=== PATIENT | male | born 1960 | race Caucasian/White ===

== ENCOUNTER 2016-12-21 16:51 | Emergency (ER) | payer OTHER ==
[~2016-12-21] VITALS: Ht 180.3 cm; Wt 120.2 kg
--- NOTE | 2016-12-21 17:05 | NUR ---
PT AMBULATORY TO ER BED 07. CAME FROM URGENT CARE AND WAS ADVISED TO GO TO ER FOR POSSIBLE STROKE. NO NEURO DEFICIT NOTED UPON ARRIVAL. PT GOWNED AND PLACED ON MONITOR. STABLE VITALS. AWAITING MD XAVIER.
--- NOTE | 2016-12-21 17:10 | NUR ---
DR TEMPLE AT BEDSIDE FOR EVAL.
--- NOTE | 2016-12-21 17:12 | NUR ---
IV LINE STARTED BLOOD DRAWN AND SENT TO LAB.
[2016-12-21 17:21] LABS: BASOPHILS # (AUTO) 0.1 /CMM (0.0-0.2); BASOPHILS % (AUTO) 0.6 % (0.0-2.0); EOSINOPHILS # (AUTO) 0.2 /CMM (0.0-0.7); EOSINOPHILS % (AUTO) 1.5 % (0.0-6.0); HEMATOCRIT 43 % (39-51); HEMOGLOBIN 14.4 g/dL (13.5-17.5); LYMPHOCYTES # (AUTO) 2.6 /CMM (0.8-4.8); LYMPHOCYTES % (AUTO) 24.1 % (20.0-44.0); MEAN CORPUSCULAR HEMOGLOBIN 28 PG (26.0-33.0); MEAN CORPUSCULAR HGB CONC 34 g/dl (31.0-36.0); MEAN CORPUSCULAR VOLUME 85 fL (80-96); MONOCYTES # (AUTO) 0.7 /CMM (0.1-1.30); MONOCYTES % (AUTO) 6.5 % (2.0-12.0); NEUTROPHILS # (AUTO) 7.2 /CMM (1.8-8.9); NEUTROPHILS % (AUTO) 67.3 % (43.0-81.0); PLATELET COUNT (AUTO) 202 /CMM (150-450); RDW COEFFICIENT OF VARIATION 12.7 (11.5-15.0); RED BLOOD CELL COUNT(AUTO) 5.07 MIL/uL (4.5-6.0); WHITE BLOOD COUNT (AUTO) 10.8 K/uL (4.3-11.0)
[2016-12-21] MEDS ORDERED: IV SET PRIMARY 1 EA INFUS.SET MC ONE (17:26)
[2016-12-21] MEDS ORDERED: IV NS 0.9% 1,000 ML ONE (17:26)
[2016-12-21] MEDS ORDERED: ONDANSETRON HCL/PF 4 MG/2 ML VIAL ONE (17:26)
[2016-12-21] MEDS ORDERED: IV NS 0.9% 1,000 ML BAG IV ONE (17:30)
[2016-12-21] MEDS ORDERED: ONDANSETRON HCL/PF 4 MG/2 ML VIAL IVP ONE (17:30)
[2016-12-21 17:31] LABS: INR 0.97 (0.87-1.13); PROTHROMBIN TIME 10.1 SECS (9.5-12.7)
[2016-12-21 17:32] LABS: ALBUMIN 4.1 g/dL (3.4-5.0); BILIRUBIN,DIRECT 0.1 mg/dL (0.0-0.2); BILIRUBIN,TOTAL 0.4 mg/dL (0.2-1.0); CALCIUM, SERUM 8.7 mg/dL (8.5-10.1); CREATININE 1.4 mg/dL (0.6-1.3)
[2016-12-21 17:34] LABS: POTASSIUM 2.7 mmol/L (3.5-5.1)
[2016-12-21] MEDS ORDERED: DICL75TA5 PO (17:42)
[2016-12-21] MEDS ORDERED: OMEP20TA20 PO (17:42)
[2016-12-21] MEDS ORDERED: HYDR-3976 PO (17:42)
--- NOTE | 2016-12-21 17:44 | NUR ---
RADIOLOGY AT BEDSIDE FOR CHEST XRAY.
[2016-12-21] MEDS ORDERED: POTASSIUM CHLORIDE 20 MEQ TAB.PRT.SR PO ONE ×2 (18:00→18:13)
[2016-12-21] MEDS ORDERED: IV SET PRIMARY PUMP SET 1 EA INFUS.SET MC ONE (18:17)
[2016-12-21] MEDS ORDERED: POTASSIUM CL. PREMIX PERIPHER. 200 ML ONE (18:17)
[2016-12-21] MEDS: POTASSIUM CL. PREMIX PERIPHER. 50 ML IV SCH ×4 (18:20→21:22)
--- NOTE | 2016-12-21 19:15 | NUR ---
Received patient in bed aaox4, no s/s of acute distress, breathing even and unlabored. Denies any pain or discomfort at this time. KCL ivf running well without adverse reaction noted. Will continue to monitor.
[2016-12-21 22:10] VITALS: BP 120/78
== END 2016-12-21 22:30 | disposition home or self-care (01) ==
LOC: ER 16:55
DX: R55 Syncope and collapse (principal); E87.6 Hypokalemia; R42 Dizziness and giddiness; E86.0 Dehydration; G89.29 Other chronic pain; M54.2 Cervicalgia; I34.1 Nonrheumatic mitral (valve) prolapse; M19.90 Unspecified osteoarthritis, unspecified site; K21.9 Gastro-esophageal reflux disease without esophagitis
CPT/HCPCS: 36415; 70450-TC; 71010-TC; 80048-TC; 80076-TC; 82962-TC; 85025-TC; 85730-TC; A4606; J2405; J3480; J7030; Z7610

== ENCOUNTER 2017-04-09 21:22 | Emergency (ER) | payer OTHER ==
[~2017-04-09] VITALS: Ht 180.3 cm; Wt 124.7 kg
[~2017-04-09 21:22] MED LIST: DICL75TA5 PO; HYDR-3976 PO; OMEP20TA20 PO
--- NOTE | 2017-04-09 21:40 | NUR ---
PT A/OX4 BREATHING EFFORTLESSLY ON ROOM AIR, PT C/O NOT BEING CLAUDIA TO URINATE FOR ONE DAY, PT STATES THAT HE HAS THE URGE TO PEE BUT IS NOT ABLE TO URINATE, PT IN GOWN ON MONITOR, MADE AWARE WILL CONTINUE TO MONITOR.
[2017-04-09] MEDS ORDERED: LIDOCAINE 2% JEL UROJET 10 ML MM ONE ×2 (21:54→22:00)
--- NOTE | 2017-04-09 22:50 | NUR ---
URINE COLLECTED FROM CERVANTES CATHETER AND SENT TO LAB
[2017-04-09 23:17] LABS: APPEARANCE,URINE CLEAR (CLEAR); BILIRUBIN,URINE NEGATIVE (NEGATIVE); BLOOD, URINE TRACE-INTA Ery/uL (NEGATIVE); COLOR,URINE YELLOW (YELLOW); KETONES,URINE TRACE (NEGATIVE); LEUKOCYTE ESTERASE ,URINE NEGATIVE (NEGATIVE); NITRITE, URINE NEGATIVE (NEGATIVE); PROTEIN,URINE 1+ mg/dl (NEGATIVE); UGLUCOSE NEGATIVE (NEGATIVE); UROBILINOGEN,URINE 0.2 EU/dL (0.2)
[2017-04-09 23:37] LABS: BACTERIA,URINE None seen /HPF (None Seen); SQUAMOUS EPITHELIAL CELL,UR Few /HPF (None Seen); WBC,URINE 0-2 /HPF (0-3)
[2017-04-09 23:38] LABS: CALCIUM OXALATE CRYSTALS,UR Many /HPF (None Seen); MUCUS,URINE Few /LPF (None Seen)
[2017-04-10] MEDS ORDERED: IV NS 0.9% 1,000 ML BAG IV ONE (00:30)
[2017-04-10 00:52] LABS: BASOPHILS % (AUTO) 0.3 % (0.0-2.0); EOSINOPHILS # (AUTO) 0.1 /CMM (0.0-0.7); EOSINOPHILS % (AUTO) 1.1 % (0.0-6.0); HEMATOCRIT 47 % (39-51); HEMOGLOBIN 16.1 g/dL (13.5-17.5); LYMPHOCYTES # (AUTO) 1.4 /CMM (0.8-4.8); LYMPHOCYTES % (AUTO) 16.5 % (20.0-44.0); MEAN CORPUSCULAR HEMOGLOBIN 30 PG (26.0-33.0); MEAN CORPUSCULAR HGB CONC 34 g/dl (31.0-36.0); MEAN CORPUSCULAR VOLUME 86 fL (80-96); MONOCYTES # (AUTO) 0.4 /CMM (0.1-1.30); MONOCYTES % (AUTO) 5.1 % (2.0-12.0); NEUTROPHILS # (AUTO) 6.7 /CMM (1.8-8.9); PLATELET COUNT (AUTO) 171 /CMM (150-450); RDW COEFFICIENT OF VARIATION 13.3 (11.5-15.0); RED BLOOD CELL COUNT(AUTO) 5.42 MIL/uL (4.5-6.0); WHITE BLOOD COUNT (AUTO) 8.7 K/uL (4.3-11.0)
[2017-04-10 01:07] LABS: CREATININE 1.5 mg/dL (0.6-1.3); POTASSIUM 3.8 mmol/L (3.5-5.1)
--- NOTE | 2017-04-10 02:07 | NUR ---
switched pt ramsey cath bag to a leg bag as ordered
[2017-04-10 02:08] VITALS: BP 134/85
--- NOTE | 2017-04-10 02:08 | NUR ---
Patient discharged to home in stable condition. Written and verbal after care instructions given. Patient verbalizes understanding of instruction.IV removed. Catheter intact and site benign. Pressure and 4x4 applied to site. No bleeding noted. pt ambulatory with a steady gait VITAL SIGNS WITHIN NORMAL LIMITS.
== END 2017-04-10 02:11 | disposition home or self-care (01) ==
LOC: ER 21:25
DX: R33.9 Retention of urine, unspecified (principal); I34.1 Nonrheumatic mitral (valve) prolapse; K21.9 Gastro-esophageal reflux disease without esophagitis; K40.90 Unilateral inguinal hernia, without obstruction or gangrene, not specified as recurrent; K76.0 Fatty (change of) liver, not elsewhere classified; M51.26 Other intervertebral disc displacement, lumbar region
CPT/HCPCS: 36415; 72128-TC; 80048-TC; 81000-TC; 85025-TC; A4606; J3490; J7030; Z7610

== ENCOUNTER 2017-04-11 10:28 | Emergency (ER) | payer OTHER ==
[~2017-04-11] VITALS: Ht 180.3 cm; Wt 122.5 kg
--- NOTE | 2017-04-11 10:42 | NUR ---
PATIENT ARRIVES TO ER C/O LEAKING CERVANTES CATHETER. PATIENT SET TO SEE UROLOGIST NEXT WEEK. PATIENT IS A/OX 4. BREATHING EVEN AND UNLABORED ON ROOM AIR. NO SOB. NO DISTRESS. VITALS STABLE. AWAITING MD ORDERS.
[2017-04-11 10:59] VITALS: BP 135/86
--- NOTE | 2017-04-11 11:00 | NUR ---
Patient discharged to home in stable condition. Written and verbal after care instructions given. Patient verbalizes understanding of instruction.
== END 2017-04-11 10:59 | disposition home or self-care (01) ==
LOC: ER 10:31
DX: T83.038A Leakage of other urinary catheter, initial encounter (principal); Y92.89 Other specified places as the place of occurrence of the external cause; I34.1 Nonrheumatic mitral (valve) prolapse; K21.9 Gastro-esophageal reflux disease without esophagitis
CPT/HCPCS: A4606; Z7610

== ENCOUNTER 2018-03-17 17:47 | Emergency (ER) | payer OTHER ==
[~2018-03-17] VITALS: Ht 180.3 cm; Wt 117.9 kg
[2018-03-17 18:20] LABS: BASOPHILS # (AUTO) 0.2 /CMM (0.0-0.2); BASOPHILS % (AUTO) 2.4 % (0.0-2.0); EOSINOPHILS % (AUTO) 3.3 % (0.0-6.0); HEMATOCRIT 46 % (39-51); HEMOGLOBIN 15.7 g/dL (13.5-17.5); LYMPHOCYTES # (AUTO) 1.7 /CMM (0.8-4.8); LYMPHOCYTES % (AUTO) 24.8 % (20.0-44.0); MEAN CORPUSCULAR HGB CONC 34 g/dl (31.0-36.0); MEAN CORPUSCULAR VOLUME 86 fL (80-96); MONOCYTES # (AUTO) 0.5 /CMM (0.1-1.30); MONOCYTES % (AUTO) 6.8 % (2.0-12.0); NEUTROPHILS # (AUTO) 4.4 /CMM (1.8-8.9); NEUTROPHILS % (AUTO) 62.7 % (43.0-81.0); PLATELET COUNT (AUTO) 186 /CMM (150-450); RDW COEFFICIENT OF VARIATION 12.4 (11.5-15.0); RED BLOOD CELL COUNT(AUTO) 5.36 MIL/uL (4.5-6.0)
--- NOTE | 2018-03-17 18:21 | NUR ---
A/OX4, ABDOMINAL PAIN, BURNING SENSATION UPON URINATION FOR "FEW DAYS" DENIES HEMATURIA. NAD VSS RR EVEN AND UNLABORED. SEEN AND EVALUATED BY ER
[2018-03-17 18:23] LABS: APPEARANCE,URINE Clear (CLEAR); BILIRUBIN,URINE Negative (NEGATIVE); BLOOD, URINE Negative Ery/uL (NEGATIVE); COLOR,URINE Yellow (YELLOW); KETONES,URINE Negative (NEGATIVE); LEUKOCYTE ESTERASE ,URINE Negative (NEGATIVE); NITRITE, URINE Negative (NEGATIVE); PROTEIN,URINE Negative (NEGATIVE); UGLUCOSE Negative (NEGATIVE); UROBILINOGEN,URINE 0.2 EU/dL (0.2)
[2018-03-17 18:31] LABS: CALCIUM, SERUM 9.6 mg/dL (8.5-10.1); CREATININE 1.4 mg/dL (0.6-1.3); POTASSIUM 3.8 mmol/L (3.5-5.1)
[2018-03-17 18:36] LABS: ALBUMIN 3.9 g/dL (3.4-5.0); BILIRUBIN,DIRECT 0.1 mg/dL (0.0-0.2); BILIRUBIN,TOTAL 0.4 mg/dL (0.2-1.0); TOTAL PROTEIN, SERUM 7.1 g/dL (6.4-8.2)
[2018-03-17] MEDS ORDERED: MAGNESIUM CITRATE 296 ML BOTTLE ONE (19:08)
--- NOTE | 2018-03-17 19:10 | NUR ---
Patient discharged to home in stable condition. Written and verbal after care instructions given. Patient verbalizes understanding of instruction.
[2018-03-17 19:11] VITALS: BP 140/89
[2018-03-17] MEDS ORDERED: MAGNESIUM CITRATE 296 ML BOTTLE PO ONE (19:30)
== END 2018-03-17 19:12 | disposition home or self-care (01) ==
LOC: ER 17:50
DX: R10.9 Unspecified abdominal pain (principal); K21.9 Gastro-esophageal reflux disease without esophagitis; M19.90 Unspecified osteoarthritis, unspecified site; M50.20 Other cervical disc displacement, unspecified cervical region; Z95.2 Presence of prosthetic heart valve; Z98.1 Arthrodesis status
CPT/HCPCS: 36415; 74021; 80048; 80076; 81001; 83690; 85025; 99285; A4606; Z7610; 81000-TC

== ENCOUNTER 2018-07-02 18:00 | Emergency (ER) | payer OTHER ==
[~2018-07-02] VITALS: Ht 180.3 cm; Wt 117.9 kg
[2018-07-02 18:00] VITALS: BP 139/78
== END 2018-07-02 18:38 | disposition home or self-care (01) ==
LOC: ER 18:02
DX: K13.79 Other lesions of oral mucosa (principal); G89.29 Other chronic pain; M50.20 Other cervical disc displacement, unspecified cervical region; M46.92 Unspecified inflammatory spondylopathy, cervical region; K21.9 Gastro-esophageal reflux disease without esophagitis; I34.0 Nonrheumatic mitral (valve) insufficiency
CPT/HCPCS: A4606; Z7610

== ENCOUNTER 2019-02-09 12:31 | Emergency (ER) ==
[~2019-02-09] VITALS: Ht 180.3 cm; Wt 117.9 kg
--- NOTE | 2019-02-09 12:43 | NUR ---
CAME IN FOR ABD PAIN, NON RADIATING x 2 1/2 DAYS, +NAUSEA, -DIARRHEA, PS 9/10, TO ER BED 11,AOX 4, RESPIRATIONS EVEN AND UNLABORED, HOOKED TO MONITOR, CHANGED TO GOWN, PROVIDED WITH WARM BLANKET, AWAITING MD XAVIER.
[2019-02-09 12:58] LABS: BASOPHILS # (AUTO) 0.1 /CMM (0.0-0.2); BASOPHILS % (AUTO) 0.6 % (0.0-2.0); EOSINOPHILS % (AUTO) 2.3 % (0.0-6.0); HEMATOCRIT 43 % (39-51); HEMOGLOBIN 15.1 g/dL (13.5-17.5); LYMPHOCYTES # (AUTO) 1.7 /CMM (0.8-4.8); LYMPHOCYTES % (AUTO) 15.5 % (20.0-44.0); MEAN CORPUSCULAR HGB CONC 35 g/dl (31.0-36.0); MEAN CORPUSCULAR VOLUME 85 fL (80-96); MONOCYTES # (AUTO) 0.7 /CMM (0.1-1.30); MONOCYTES % (AUTO) 6.9 % (2.0-12.0); NEUTROPHILS # (AUTO) 8.1 /CMM (1.8-8.9); NEUTROPHILS % (AUTO) 74.7 % (43.0-81.0); PLATELET COUNT (AUTO) 181 /CMM (150-450); RED BLOOD CELL COUNT(AUTO) 5.08 MIL/uL (4.5-6.0); WHITE BLOOD COUNT (AUTO) 10.8 K/uL (4.3-11.0)
--- NOTE | 2019-02-09 13:01 | NUR ---
WHEELED OUT VIA WHEELCHAIR FOR CT SCAN.
[2019-02-09 13:04] LABS: CALCIUM, SERUM 8.8 mg/dL (8.5-10.1); CREATININE 1.4 mg/dL (0.6-1.3); POTASSIUM 4.5 mmol/L (3.5-5.1)
[2019-02-09 13:05] LABS: BILIRUBIN,URINE Negative (NEGATIVE); BLOOD, URINE Negative Ery/uL (NEGATIVE); KETONES,URINE Negative (NEGATIVE); LEUKOCYTE ESTERASE ,URINE Negative (NEGATIVE); NITRITE, URINE Negative (NEGATIVE); PROTEIN,URINE 30 mg/dl (NEGATIVE); UGLUCOSE Negative (NEGATIVE); UROBILINOGEN,URINE 0.2 EU/dL (0.2)
--- NOTE | 2019-02-09 13:05 | NUR ---
URINE SPECIMEN COLLECTED AND SENT TO LAB.
[2019-02-09 13:06] LABS: APPEARANCE,URINE Hazy (CLEAR); COLOR,URINE Dark Yellow (YELLOW)
[2019-02-09 13:11] LABS: ALBUMIN 3.8 g/dL (3.4-5.0); BILIRUBIN,DIRECT 0.2 mg/dL (0.0-0.2); BILIRUBIN,TOTAL 0.8 mg/dL (0.2-1.0); TOTAL PROTEIN, SERUM 7.4 g/dL (6.4-8.2)
[2019-02-09 13:14] LABS: BACTERIA,URINE None seen /HPF (None Seen); RBC,URINE 0-2 /HPF (0-2); SQUAMOUS EPITHELIAL CELL,UR Few /HPF (None Seen)
[2019-02-09 13:15] LABS: MUCUS,URINE Few /LPF (None Seen)
[2019-02-09] MEDS ORDERED: ACETAMINOPHEN ES 500 MG TABLET ONE (13:38)
--- NOTE | 2019-02-09 13:40 | NUR ---
PT REQUESTED FOR TYLENOL BEFORE BEING DISCHARGED. MADE MD AWARE AND VERBALLY ORDERED TYLENOL 1000MG PO. CARRIED OUT.
--- NOTE | 2019-02-09 13:50 | NUR ---
IV removed. Catheter intact and site benign. Pressure and 4x4 applied to site. No bleeding noted.Patient discharged to home in stable condition. Written and verbal after care instructions given. Patient verbalizes understanding of instruction.
[2019-02-09 13:52] VITALS: BP 122/76
[2019-02-09] MEDS ORDERED: ACETAMINOPHEN ES 500 MG TABLET PO ONE (14:00)
[2019-03-07] MEDS ORDERED: CIPR-262 PO (08:09)
[2019-03-07] MEDS ORDERED: METR500T PO (08:09)
== END 2019-02-09 13:52 | disposition home or self-care (01) ==
LOC: ER 12:31
DX: K57.32 Diverticulitis of large intestine without perforation or abscess without bleeding (principal); K21.9 Gastro-esophageal reflux disease without esophagitis; Z98.890 Other specified postprocedural states
CPT/HCPCS: 36415; 80048-TC; 80076-TC; 81000-TC; 83690-TC; 85025-TC

== ENCOUNTER 2019-02-25 07:25 | Emergency (ER) | payer OTHER ==
[~2019-02-25] VITALS: Ht 180.3 cm; Wt 117.9 kg
[2019-02-25] MEDS ORDERED: KETOROLAC TROMETHAMINE INJ 30 MG/ML VIAL ONE (08:08)
[2019-02-25 08:13] LABS: BASOPHILS # (AUTO) 0.1 /CMM (0.0-0.2); BASOPHILS % (AUTO) 0.6 % (0.0-2.0); EOSINOPHILS % (AUTO) 4.8 % (0.0-6.0); HEMATOCRIT 46 % (39-51); HEMOGLOBIN 15.8 g/dL (13.5-17.5); LYMPHOCYTES # (AUTO) 1.3 /CMM (0.8-4.8); LYMPHOCYTES % (AUTO) 15.5 % (20.0-44.0); MEAN CORPUSCULAR HGB CONC 34 g/dl (31.0-36.0); MEAN CORPUSCULAR VOLUME 86 fL (80-96); MONOCYTES # (AUTO) 0.7 /CMM (0.1-1.30); MONOCYTES % (AUTO) 8.9 % (2.0-12.0); NEUTROPHILS # (AUTO) 5.9 /CMM (1.8-8.9); NEUTROPHILS % (AUTO) 70.2 % (43.0-81.0); PLATELET COUNT (AUTO) 178 /CMM (150-450); RED BLOOD CELL COUNT(AUTO) 5.34 MIL/uL (4.5-6.0); WHITE BLOOD COUNT (AUTO) 8.4 K/uL (4.3-11.0)
[2019-02-25 08:19] LABS: CREATININE 1.1 mg/dL (0.6-1.3); POTASSIUM 4.4 mmol/L (3.5-5.1)
[2019-02-25 08:25] LABS: ALBUMIN 3.7 g/dL (3.4-5.0); BILIRUBIN,TOTAL 0.7 mg/dL (0.2-1.0); TOTAL PROTEIN, SERUM 7.7 g/dL (6.4-8.2)
[2019-02-25] MEDS ORDERED: IV NS 0.9% 1,000 ML BAG IV ONE (08:30)
[2019-02-25] MEDS ORDERED: KETOROLAC TROMETHAMINE INJ 30 MG/ML VIAL IV ONE (08:30)
[2019-02-25] MEDS ORDERED: PIPERACILLIN /TAZOBACTAM 3.375 G in IV D5W 50 ML IV ONE (09:30)
[2019-02-25 09:58] VITALS: BP 118/70
[2019-03-07] MEDS ORDERED: CIPR-262 PO (08:09)
[2019-03-07] MEDS ORDERED: METR500T PO (08:09)
== END 2019-02-25 10:01 | disposition home or self-care (01) ==
LOC: ER 07:29
DX: K57.32 Diverticulitis of large intestine without perforation or abscess without bleeding (principal); G89.29 Other chronic pain; M19.90 Unspecified osteoarthritis, unspecified site; K21.9 Gastro-esophageal reflux disease without esophagitis; Z98.890 Other specified postprocedural states; Z79.899 Other long term (current) drug therapy
CPT/HCPCS: 36415; 74176; 80048; 80076; 83690; 85025; 96365; 96375; 99284; J1885; J2543; J7030 ×2; J7060

== ENCOUNTER 2019-03-05 23:14 | Inpatient (IN) | payer OTHER ==
[~2019-03-05] VITALS: Ht 180.3 cm; Wt 117.9 kg
--- NOTE | 2019-03-05 23:40 | NUR ---
PT PRESENTED TO THE ER WITH A C/O ABD PAIN AND BLOODY STOOL X1. PT STATED THAT HE WAS DX WITH DIVERTICULITIS LAST WEEK AND IS ALMOST FINISHED WITH HIS FLAGYL RX. PT STATED THAT HE HAD SEVERE ABD PAIN AND WENT TO THE BATHROOM WHERE HE NOTICED HE HAD BLOODY DIARRHEA. PT STATED THAT HE HAD HEMORRHOIDS LAST WEEK. PT AMBULATED TO ER #2 WITH A STEADY GAIT. PT WAS PLACED ON THE MONITOR AND CONTINUOUS PULSE OX.
--- NOTE | 2019-03-05 23:48 | NUR ---
Sari CEJA PERSONAL CLOTHING LAUNDRY AIDE IS AT THE BEDSIDE.
[2019-03-06] MEDS ORDERED: IV NS 0.9% 1,000 ML BAG IV ONE
[2019-03-06 00:12] LABS: BASOPHILS % (AUTO) 0.8 % (0.0-2.0); EOSINOPHILS % (AUTO) 5.8 % (0.0-6.0); HEMATOCRIT 42 % (39-51); HEMOGLOBIN 14.1 g/dL (13.5-17.5); LYMPHOCYTES # (AUTO) 1.8 /CMM (0.8-4.8); LYMPHOCYTES % (AUTO) 31.3 % (20.0-44.0); MEAN CORPUSCULAR HGB CONC 34 g/dl (31.0-36.0); MEAN CORPUSCULAR VOLUME 85 fL (80-96); MONOCYTES # (AUTO) 0.4 /CMM (0.1-1.30); MONOCYTES % (AUTO) 7.8 % (2.0-12.0); NEUTROPHILS # (AUTO) 3.1 /CMM (1.8-8.9); NEUTROPHILS % (AUTO) 54.3 % (43.0-81.0); PLATELET COUNT (AUTO) 197 /CMM (150-450); RED BLOOD CELL COUNT(AUTO) 4.89 MIL/uL (4.5-6.0); WHITE BLOOD COUNT (AUTO) 5.7 K/uL (4.3-11.0)
[2019-03-06 00:21] LABS: CALCIUM, SERUM 8.9 mg/dL (8.5-10.1); CREATININE 1.1 mg/dL (0.6-1.3); POTASSIUM 3.5 mmol/L (3.5-5.1)
[2019-03-06] MEDS ORDERED: PANTOPRAZOLE 40 MG VIAL ONE ×2 (00:22→00:28)
[2019-03-06] MEDS ORDERED: WATER FOR INJECTION,STERILE 10 ML ONE (00:22)
[2019-03-06 00:27] LABS: ALBUMIN 3.5 g/dL (3.4-5.0); BILIRUBIN,TOTAL 0.2 mg/dL (0.2-1.0); TOTAL PROTEIN, SERUM 6.6 g/dL (6.4-8.2)
[2019-03-06] MEDS ORDERED: CEFTRIAXONE 1GM BAG (ER ONLY) 1 GM/50 ML PIGGYBACK IV ONE (00:30)
[2019-03-06] MEDS ORDERED: PANTOPRAZOLE 40 MG VIAL IV ONE (00:30)
[2019-03-06] MEDS ORDERED: FLAGYL/NS RTU 500 MG/100 ML PIGGYBACK IV ONE (00:30)
[2019-03-06] MEDS ORDERED: CEFTRIAXONE 1GM BAG (ER ONLY) 50 ML IV ONE (00:35)
[2019-03-06] MEDS ORDERED: METRONIDAZOLE 500MG/ NS 100ML 100 ML IV ONE ×2 (00:35→05:22)
--- NOTE | 2019-03-06 01:19 | NUR ---
URINE COLLECTED AND SENT TO LAB
[2019-03-06 01:34] LABS: APPEARANCE,URINE Clear (CLEAR); BILIRUBIN,URINE Negative (NEGATIVE); BLOOD, URINE Negative Ery/uL (NEGATIVE); COLOR,URINE Yellow (YELLOW); KETONES,URINE Negative (NEGATIVE); LEUKOCYTE ESTERASE ,URINE Negative (NEGATIVE); NITRITE, URINE Negative (NEGATIVE); PROTEIN,URINE Negative (NEGATIVE); UGLUCOSE Negative (NEGATIVE); UROBILINOGEN,URINE 0.2 EU/dL (0.2)
--- NOTE | 2019-03-06 01:45 | NUR ---
PT'S CAR IS IN THE PARKING LOT. [employer] WITH [employer]. SECURITY WAS NOTIFIED.
--- NOTE | 2019-03-06 01:52 | NUR ---
PT APPEARS TO BE RESTING COMFORTABLY.
--- NOTE | 2019-03-06 01:59 | NUR ---
MS 315-2
--- NOTE | 2019-03-06 02:05 | NUR ---
REPORT GIVEN TO MARIAN PEARCE
--- NOTE | 2019-03-06 02:43 | NUR ---
PT ACCEPTED BY [facility].
[2019-03-06 03:00] VITALS: BP 124/82
--- NOTE | 2019-03-06 03:00 | NUR ---
MS CUSTOM BOW MAKER NOTES ADMITTED FROM ER VIA [facility]ULLEN THIS 58 Y.O.MALE,ALERT.ORIENTED X4,AMBULATORY.WITH CHIEF COMPLAINTS OF BLOODY STOOL STARTED AROUND 2200 LAST NIGHT,BUT IN ER,HE HAD BLOOD TINGED STOOL AROUND 0100.NO SKIN ISSUES.SALINE LOCK LEFT HAND #20 INTACT AND PATENT.CLAIMED ABDOMINAL PAIN WITH SCALE OF 3/10,TOLERABLE.ORIENTED TO ROOM SET UP.CALL LIGHT IN REACH,NEEDS ANTICIPATED.
[2019-03-06 03:26] VITALS: BP 124/82
[2019-03-06] MEDS ORDERED: IV NS 0.9% 1,000 ML IV PRN (03:54)
[2019-03-06] MEDS ORDERED: ACETAMINOPHEN 325 MG TABLET PO PRN (04:00)
[2019-03-06] MEDS ORDERED: Z GUARD REMEDY 2 OZ OINT TP PRN (04:00)
[2019-03-06] MEDS ORDERED: HYDROCODONE/APAP 5/325MG 1 EACH TABLET PO PRN (04:00)
[2019-03-06] MEDS ORDERED: MAG HYDROX/AL HYDROX/SIMETH 30 ML UDC PO PRN (04:00)
[2019-03-06] MEDS ORDERED: ONDANSETRON HCL/PF 4 MG/2 ML VIAL IVP PRN (04:00)
[2019-03-06] MEDS ORDERED: MORPHINE SULFATE INJ 2 MG/ML DISP.SYRIN IV PRN (04:00)
[2019-03-06] MEDS ORDERED: MAGNESIUM HYDROXIDE 30 ML UDC PO PRN (04:00)
--- NOTE | 2019-03-06 04:40 | NUR ---
MS RN NOTES STARTED ON IVF NS 1L/AT 75ML/HR RATE,INFUSING VIA IV PUMP.
[2019-03-06] MEDS: METRONIDAZOLE 500MG/ NS 100ML 500 MG in PREMIX 1 EA IV SCH ×4 (05:27→23:58)
--- NOTE | 2019-03-06 06:00 | NUR ---
MS RN NOTES DUE FLAGYL 500MG IVPB HUNG
--- NOTE | 2019-03-06 06:42 | NUR ---
MS RN NOTES ON BED SLEEPING,NO BOWEL MOVEMENT SINCE HE CAME.IVF IN PROGRESS.KEPT NPO ORDERED,FOR GI CONSULT DUE TO DIVERTICULITIS HISTORY,IN NO ACUTE DISTRESS.WILL GIVE REPORT TO DOLORES FONSECARELIGION INSTRUCTOR FOR FARHAT.
--- NOTE | 2019-03-06 07:13 | NUR ---
Nurse Notes: received report from the night nurse Katheryn Galloway RN, alert and oriented. IV is infusing at 75 cc per hour. Asleep at present time, in no respiratory distress. No complaints of pain. Remains on IV antibiotics, Cipro and Flagyl IVPB.
[2019-03-06 08:00] VITALS: BP 104/71
[2019-03-06] MEDS: DOCUSATE SODIUM 100 MG CAPSULE PO SCH ×2 (08:28→16:18)
[2019-03-06] MEDS: CIPROFLOXACIN IV RTU 200 MG in PREMIX 1 EA IV SCH ×2 (08:52→22:01)
[2019-03-06] MEDS ORDERED: FAMOTIDINE/PF INJ 20 MG/2 ML VIAL IV SCH (09:00)
[2019-03-06] MEDS ORDERED: DICLOFENAC SODIUM 25 MG TABLET.DR PO SCH (09:00)
--- NOTE | 2019-03-06 12:00 | NUR ---
Nurse Notes: Patient is tolerating clear liquids, voiding freely. Ambulates to bathroom. No complaints of any Nausea.
[2019-03-06 16:00] VITALS: BP 118/78
--- NOTE | 2019-03-06 16:30 | NUR ---
Nurse Notes: patient stated had bowel movement, had no bloody stool. remains on clear liquids.
--- NOTE | 2019-03-06 17:08 | NUR ---
Nurse Notes: report given to MARIAN Slade. remains on clear liquids. IV is hep lock. No bloody stools.
--- NOTE | 2019-03-06 17:10 | NUR ---
MS/RN NOTE THE PATIENT IS RECEIVED IN BED. ALERT AND ORIENTED X4. IN ROOM AIR AND DENIES SOB. RESPIRATION REGULAR AND UNLABORED. DENIES PAIN. LEFT HAND G 20 AND SALINE LOCKED. BED LOW AND LOCKED. SIDE RAILS UP X3. CALL LIGHT WITHIN REACH. WILL CONTINUE TO MONITOR.
--- NOTE | 2019-03-06 18:15 | NUR ---
MS/RN CLOSING NOTE PATIENT ALERT AND ORIENTED X4. IN ROOM AIR AND SATURATION IS AT 97%. DENIES SOB. RESPIRATION REGULAR AND UNLABORED. DENIES PAIN. THE PATIENT IS IN NO APPARENT DISTRESS. ABDOMEN SIFT AND NON-DISTENDED. PATIENT IS ON CLEAR LIQUID DIET AND TOLERATED IT WELL DURING DINNER TIME. LEFT HAND G 20 PATENT AND IV ANTIBIOTIC INFUSING PER ORDER AND NO S/S INFILTRATION NOTED. BED LOW AND LOCKED. SIDE RAILS UP X3. CALL LIGHT WITHIN REACH. ENDORSE TO PLUMBER ASSISTANT.
--- NOTE | 2019-03-06 19:35 | NUR ---
RN OPENING NOTES RECEIVED REPORT FROM DAYSHIFT RNJAG. FOUND Pt AWAKE, RESTING IN BED, WATCHING TV. NO S/S OF ACUTE DISTRESS OR SOB NOTED. RESPIRATIONS EVEN AND UNLABORED WITH EQUAL CHEST RISE AND FALL. Pt IS A/0X4, VERBAL, ABLE TO MAKE NEEDS KNOWN. IV ACCESS ON L HAND #20G, SL. SAFETY MEASURES IN PLACE. BED LOW, LOCKED, HOB ELEVATED, SIDE RAILS UP, CALL LIGHT AND BEDSIDE TABLE WITHIN REACH. WILL CONTINUE TO MONITOR Pt's CONDITION AND SAFETY THROUGHOUT THE NIGHT.
[2019-03-06 20:00] VITALS: BP 120/72
[2019-03-06 20:14] VITALS: BP 120/72
[2019-03-06] MEDS: NEXIUM 40 MG VIAL IV SCH (22:01)
--- NOTE | 2019-03-07 00:12 | NUR ---
RN NOTES Pt WAS C/O OF ITCHINESS AND REDNESS AROUND THE IV SITE ON LHAND AND WANTED IT REMOVED. STARTED NEW IV ACCESS ON LWRIST #22G. REMOVED OLD IV ON LHAND, SECURED WITH GAUZE AND TAPE, NO SIGNS OF BLEEDING NOTED.
[2019-03-07] MEDS: METRONIDAZOLE 500MG/ NS 100ML 500 MG in PREMIX 1 EA IV SCH ×2 (06:05→11:57)
[2019-03-07 06:39] LABS: BASOPHILS # (AUTO) 0.1 /CMM (0.0-0.2); BASOPHILS % (AUTO) 0.8 % (0.0-2.0); EOSINOPHILS % (AUTO) 5.2 % (0.0-6.0); HEMATOCRIT 43 % (39-51); HEMOGLOBIN 14.6 g/dL (13.5-17.5); LYMPHOCYTES # (AUTO) 1.6 /CMM (0.8-4.8); LYMPHOCYTES % (AUTO) 24.5 % (20.0-44.0); MEAN CORPUSCULAR HGB CONC 34 g/dl (31.0-36.0); MEAN CORPUSCULAR VOLUME 85 fL (80-96); MONOCYTES # (AUTO) 0.5 /CMM (0.1-1.30); MONOCYTES % (AUTO) 7.2 % (2.0-12.0); NEUTROPHILS % (AUTO) 62.3 % (43.0-81.0); PLATELET COUNT (AUTO) 177 /CMM (150-450); RED BLOOD CELL COUNT(AUTO) 4.97 MIL/uL (4.5-6.0); WHITE BLOOD COUNT (AUTO) 6.5 K/uL (4.3-11.0)
[2019-03-07 06:41] LABS: CALCIUM, SERUM 8.3 mg/dL (8.5-10.1); CREATININE 1.2 mg/dL (0.6-1.3); MAGNESIUM 2.3 mg/dL (1.8-2.4); PHOSPHORUS 3.6 mg/dL (2.5-4.9); POTASSIUM 3.8 mmol/L (3.5-5.1)
--- NOTE | 2019-03-07 06:42 | NUR ---
RN CLOSING NOTES NO SIGNIFICANT CHANGES IN Pt's CONDITION. Pt REMAINS STABLE PER BASELINE. NO S/S OF ACUTE DISTRESS OR SOB NOTED DURING THE NIGHT. ALL NEEDS MET AND ATTENDED TO. SAFETY MEASURES IN PLACE. Pt IS RESTING COMFORTABLY IN BED, RESPIRATIONS EVEN AND UNLABORED, WITH EQUAL CHEST RISE AND FALL. WILL ENDORSE TO DAYSHIFT RN FOR Pt's FARHAT.
[2019-03-07 06:43] LABS: THYROID STIMULATING HORMONE 2.328 uIU/mL (0.358-3.74)
--- NOTE | 2019-03-07 07:26 | NUR ---
MS/RN OPENING NOTE PATIENT IN BED IN STABLE CONDITION. A/O X 4. NO SIGNS OF ACUTE DISTRESS. NO COMPLAIN OF PAIN OR DISCOMFORT. ALL NEEDS ATTENDED TO. CALL LIGHT WITHIN REACH. WILL CONTINUE TO MONITOR TO ENSURE SAFETY.
--- NOTE | 2019-03-07 07:56 | NUR ---
MS/RN SEEN BY DR KOCH WITH ORDERS TO ADVANCE DIET FROM CLEAR LIQUIDS TO SOFT DIET FOR LUNCH AND IF TOLERATED WELL, MAY DC HOME TODAY WITH PO ATB'S. PATIENT AWARE.
[2019-03-07 08:00] VITALS: BP 112/74
[2019-03-07] MEDS ORDERED: CIPR-262 PO (08:09)
[2019-03-07] MEDS ORDERED: METR500T PO (08:09)
--- NOTE | 2019-03-07 08:10 | NUR ---
MS/RN SPOKE WITH SKYLER FROM PHARM AND MADE AWARE PATIENT HAS CIPRO IV ATB DUE AT 9AM AND MEDICATION IS NOT AVAILABLE IN MED ROOM, PER SKYLER "WILL SEND IT"
[2019-03-07] MEDS: DOCUSATE SODIUM 100 MG CAPSULE PO SCH (08:13)
[2019-03-07] MEDS: NEXIUM 40 MG VIAL IV SCH (08:13)
[2019-03-07] MEDS: CIPROFLOXACIN IV RTU 200 MG in PREMIX 1 EA IV SCH (09:07)
--- NOTE | 2019-03-07 12:09 | NUR ---
MS/RN PATIENT TOLERATED SOFT DIET WELL. DENIES ANY ABDOMINAL PAIN, N/V.
--- NOTE | 2019-03-07 13:05 | NUR ---
MS/PRODUCE SPECIALIST PATIENT DISCHARGE HOME IN STABLE CONDITION. A/O X 4. NO SIGNS OF ACUTE DISTRESS. NO COMPLAIN OF PAIN OR DISCOMFORT. DISCHARGE TEACHINGS AND EDUCATION PROVIDED, VERBALIZED UNDERSTANDING. MADE AWARE TO FOLLOW UP WITH PRIMARY PHYSICIAN WITHIN A WEEK AND FOLLOW UP GI DOCTOR OUTPATIENT IN 6 WEEKS FOR COLONOSCOPY. VERBALIZED UNDERSTANDING. PRESCRIPTION PROVIDED, NAME BAND AND IV LINE REMOVED. LEFT IN STABLE CONDITION VIA PRIVATE CARE SELF ACCOMPANIED.
== END 2019-03-07 13:00 | disposition home or self-care (01) | DRG 244 ==
LOC: ER 23:22 → MED 03-06 02:35
PROVIDERS: ADMIT Student in an Organized Health Care Education/Training Program; ATTEND Student in an Organized Health Care Education/Training Program
DX: K57.33 Diverticulitis of large intestine without perforation or abscess with bleeding (principal); I34.1 Nonrheumatic mitral (valve) prolapse; J45.909 Unspecified asthma, uncomplicated; K21.9 Gastro-esophageal reflux disease without esophagitis; K64.9 Unspecified hemorrhoids; Z96.641 Presence of right artificial hip joint
CPT/HCPCS: 36415; 80048-TC; 80061-TC; 80076-TC; 81000-TC; 83605-TC; 83690-TC; 83735-TC; 84100-TC; 84443-TC; 85025-TC; 85730-TC; 86850-TC; 87040-TC; 87081-TC; A4216; C9113; G0378; J0696; J0744; J3490; J7030

== ENCOUNTER 2019-05-06 09:29 | Emergency (ER) | payer OTHER ==
[~2019-05-06] VITALS: Ht 180.3 cm; Wt 117.9 kg
[~2019-05-06 09:29] MED LIST changes: +CIPR-262 PO; -DICL75TA5 PO; +METR500T PO
[2019-05-06] MEDS ORDERED: predniSONE 20 MG TABLET ONE (10:20)
[2019-05-06] MEDS ORDERED: KETOROLAC TROMETHAMINE 15 MG/ML VIAL ONE (10:20)
[2019-05-06] MEDS ORDERED: predniSONE 20 MG TABLET PO ONE (10:30)
[2019-05-06] MEDS ORDERED: KETOROLAC TROMETHAMINE INJ 30 MG/ML VIAL IM ONE (10:30)
[2019-05-06 10:43] VITALS: BP 140/78
--- NOTE | 2019-05-06 10:45 | NUR ---
Patient discharged to home in stable condition. Written and verbal after care instructions given. Patient verbalizes understanding of instruction.
== END 2019-05-06 10:44 | disposition home or self-care (01) ==
LOC: ER 09:29
DX: M54.42 Lumbago with sciatica, left side (principal); G89.29 Other chronic pain; J45.909 Unspecified asthma, uncomplicated; K21.9 Gastro-esophageal reflux disease without esophagitis; Z96.641 Presence of right artificial hip joint; Z79.899 Other long term (current) drug therapy
CPT/HCPCS: 96372; 99283; J1885; J7512

== ENCOUNTER 2019-06-27 10:21 | Emergency (ER) | payer OTHER ==
[~2019-06-27] VITALS: Ht 180.3 cm; Wt 117.9 kg
[2019-06-27] MEDS ORDERED: MECLIZINE HCL 12.5 MG TABLET PO ONE (11:00)
--- NOTE | 2019-06-27 11:00 | NUR ---
patient came in to the ER BIBRA, c/o dizziness, on room air breathing evenly and unlabored. Connected to the monitor and pulse ox. kept comfortable, will continue to monitor accordingly.
[2019-06-27] MEDS ORDERED: MECLIZINE HCL 25 MG TABLET ONE (11:27)
[2019-06-27 12:43] VITALS: BP 125/81
--- NOTE | 2019-06-27 12:45 | NUR ---
Patient discharged to home in stable condition. Written and verbal after care instructions given. Patient verbalizes understanding of instruction.
== END 2019-06-27 12:45 | disposition home or self-care (01) ==
LOC: ER 10:22
DX: H81.10 Benign paroxysmal vertigo, unspecified ear (principal); J45.909 Unspecified asthma, uncomplicated; K21.9 Gastro-esophageal reflux disease without esophagitis; Z96.641 Presence of right artificial hip joint; Z98.890 Other specified postprocedural states; Z79.899 Other long term (current) drug therapy
CPT/HCPCS: 99283; J8597

== ENCOUNTER 2019-12-07 13:11 | Emergency (ER) | payer OTHER ==
[~2019-12-07] VITALS: Ht 180.3 cm; Wt 122.5 kg
--- NOTE | 2019-12-07 13:40 | NUR ---
L SHOULDER PAIN X1 WK, GETTING WORSE. PATIENT AMBULATORY WITH STEADY GAIT, BREATHING EVEN AND UNLABORED, NO SOB NOTED. TEE MYRICK PA AT BEDSIDE.
--- NOTE | 2019-12-07 13:55 | NUR ---
SLING APPLIED. Patient discharged to home in stable condition. Written and verbal after care instructions given. Patient verbalizes understanding of instruction.
[2019-12-07 13:56] VITALS: BP 135/85
== END 2019-12-07 13:57 | disposition home or self-care (01) ==
LOC: ER 13:18
DX: M25.512 Pain in left shoulder (principal); J45.909 Unspecified asthma, uncomplicated; K21.9 Gastro-esophageal reflux disease without esophagitis; Z96.641 Presence of right artificial hip joint; Z60.2 Problems related to living alone; Z79.899 Other long term (current) drug therapy

== ENCOUNTER 2019-12-11 00:59 | Emergency (ER) | payer OTHER ==
[~2019-12-11] VITALS: Ht 180.3 cm; Wt 124.7 kg
--- NOTE | 2019-12-11 01:16 | NUR ---
MANIFOLD BUILDER AT BEDSIDE AND EKG DONE BY EMT
--- NOTE | 2019-12-11 01:19 | NUR ---
XRAY AT BEDSIDE
--- NOTE | 2019-12-11 01:21 | NUR ---
BIBS TO ER BED 2. AAOX4. NOT IN RESP DISTRESS, BREATHING EVEN AND UNLABORED. AMBULATORY. CAME IN FOR MID STERNAL CHEST PAIN NON RADIATING INTERMITENT WHICH IS NOT PRESENT AT THIS TIME. PER PT, IT STARTED 1 HOUR AGO WHICH LASTED FOR COUPLE OF MINUTES AND HAPPENED FOUR TIME THEN HE DECIDED TO GO TO THE ER. PT REPORTS THAT HE HAS BEEN HAVING COUGH FOR THE PAST 3 DAYS. PT ALSO REPORTS THAT HE IS NAUSEOUS BUT NO VOMITING. MD WAS AT BEDSIDE FOR EVAL. ORDERS RECEIVED NOTED AND CARRIED OUT. EKG DONE. BLOOD DRAWN AND XRAY DONE. NO NEED FOR IV LINE
[2019-12-11 01:25] LABS: BASOPHILS % (AUTO) 0.3 % (0.0-2.0); EOSINOPHILS % (AUTO) 4.6 % (0.0-6.0); HEMATOCRIT 44 % (39-51); HEMOGLOBIN 15.1 g/dL (13.5-17.5); LYMPHOCYTES # (AUTO) 2.1 /CMM (0.8-4.8); LYMPHOCYTES % (AUTO) 27.5 % (20.0-44.0); MEAN CORPUSCULAR HGB CONC 34 g/dl (31.0-36.0); MEAN CORPUSCULAR VOLUME 86 fL (80-96); MONOCYTES # (AUTO) 0.5 /CMM (0.1-1.30); MONOCYTES % (AUTO) 6.6 % (2.0-12.0); NEUTROPHILS # (AUTO) 4.6 /CMM (1.8-8.9); PLATELET COUNT (AUTO) 184 /CMM (150-450); RED BLOOD CELL COUNT(AUTO) 5.12 MIL/uL (4.5-6.0); WHITE BLOOD COUNT (AUTO) 7.6 K/uL (4.3-11.0)
[2019-12-11 01:40] LABS: CALCIUM, SERUM 8.7 mg/dL (8.5-10.1); CARBON DIOXIDE 28 mmol/L (21-32); CHLORIDE 105 mmol/L (98-107); CREATININE 1.5 mg/dL (0.6-1.3); GLUCOSE 110 mg/dL (74-106); POTASSIUM 3.6 mmol/L (3.5-5.1); SODIUM SERUM 143 mmol/L (136-145); UREA NITROGEN, BLOOD 10 mg/dL (7-18)
[2019-12-11 01:45] LABS: ALANINE AMINOTRANSFERASE 59 U/L (12-78); ALBUMIN 3.8 g/dL (3.4-5.0); ALKALINE PHOSPHATASE 68 U/L (46-116); ASPARTATE AMINOTRANSFERASE 25 U/L (15-37); BILIRUBIN,TOTAL 0.2 mg/dL (0.2-1.0); TOTAL PROTEIN, SERUM 6.9 g/dL (6.4-8.2)
[2019-12-11 01:56] VITALS: BP 129/74
== END 2019-12-11 01:56 | disposition home or self-care (01) ==
LOC: ER 01:01
DX: R09.1 Pleurisy (principal); K21.9 Gastro-esophageal reflux disease without esophagitis; Z96.641 Presence of right artificial hip joint; J45.909 Unspecified asthma, uncomplicated
CPT/HCPCS: 36415; 71045-TC; 80048-TC; 80076-TC; 84484-TC; 85025-TC; 85730-TC

== ENCOUNTER 2020-01-07 07:12 | Emergency (ER) | payer OTHER ==
[~2020-01-07] VITALS: Ht 180.3 cm; Wt 122.5 kg
--- NOTE | 2020-01-07 07:30 | NUR ---
DR BENAVIDES AT BEDSIDE
[2020-01-07] MEDS ORDERED: DEXAMETHASONE SOD PHOSPHATE 10 MG/ML VIAL ONE (07:51)
[2020-01-07] MEDS ORDERED: KETOROLAC TROMETHAMINE INJ 30 MG/ML VIAL ONE (07:51)
[2020-01-07] MEDS: DEXAMETHASONE SOD PHOSPHATE 10 MG/ML VIAL IV ONE ×2 (07:59→08:03)
[2020-01-07] MEDS: KETOROLAC TROMETHAMINE INJ 60 MG/2 ML VIAL IM ONE ×2 (07:59→08:03)
--- NOTE | 2020-01-07 08:53 | NUR ---
PATIENT VERBALIZES PAIN HAS LESSEN.
--- NOTE | 2020-01-07 09:00 | NUR ---
Patient discharged to home in stable condition. Written and verbal after care instructions given. Patient verbalizes understanding of instruction.
[2020-01-07 09:01] VITALS: BP 139/80
== END 2020-01-07 09:02 | disposition home or self-care (01) ==
LOC: ER 07:12
DX: M54.42 Lumbago with sciatica, left side (principal); G89.29 Other chronic pain; J45.909 Unspecified asthma, uncomplicated; K21.9 Gastro-esophageal reflux disease without esophagitis; Z60.2 Problems related to living alone; Z98.890 Other specified postprocedural states; Z96.641 Presence of right artificial hip joint
CPT/HCPCS: 96372 ×2; 99284; J1100; J1885

== ENCOUNTER 2020-02-07 00:28 | Emergency (ER) | payer OTHER ==
[~2020-02-07] VITALS: Ht 180.3 cm; Wt 127.0 kg
--- NOTE | 2020-02-07 00:41 | NUR ---
URINE IS COLLECTED AND SENT TO THE LAB
--- NOTE | 2020-02-07 00:43 | NUR ---
PATIENT CAME TO ER BED 9 C/O LOWER ABDOMINAL PAIN FOR A WEEK. PATIENT STATES HE CURRENTLY DOES NOT HAVE NAUSEA AND VOMITING. AAOX4. NO SOB. BREATHING EVENLY AND UNLABORED ON ROOM AIR. CONNECTED TO MONITOR.
[2020-02-07 00:47] LABS: APPEARANCE,URINE CLEAR (CLEAR); BILIRUBIN,URINE NEGATIVE (NEGATIVE); BLOOD, URINE NEGATIVE Ery/uL (NEGATIVE); COLOR,URINE YELLOW (YELLOW); KETONES,URINE NEGATIVE (NEGATIVE); LEUKOCYTE ESTERASE ,URINE NEGATIVE (NEGATIVE); NITRITE, URINE NEGATIVE (NEGATIVE); PROTEIN,URINE NEGATIVE (NEGATIVE); UGLUCOSE NEGATIVE (NEGATIVE); UROBILINOGEN,URINE 0.2 EU/dL (0.2)
--- NOTE | 2020-02-07 01:19 | NUR ---
BLOOD DRAWN AND SENT TO LAB.
[2020-02-07 01:24] LABS: BASOPHILS # (AUTO) 0.1 /CMM (0.0-0.2); EOSINOPHILS % (AUTO) 5.4 % (0.0-6.0); HEMATOCRIT 42 % (39-51); HEMOGLOBIN 14.3 g/dL (13.5-17.5); LYMPHOCYTES # (AUTO) 1.9 /CMM (0.8-4.8); LYMPHOCYTES % (AUTO) 26.8 % (20.0-44.0); MEAN CORPUSCULAR HGB CONC 34 g/dl (31.0-36.0); MEAN CORPUSCULAR VOLUME 86 fL (80-96); MONOCYTES # (AUTO) 0.5 /CMM (0.1-1.30); MONOCYTES % (AUTO) 7.2 % (2.0-12.0); NEUTROPHILS # (AUTO) 4.3 /CMM (1.8-8.9); NEUTROPHILS % (AUTO) 59.6 % (43.0-81.0); PLATELET COUNT (AUTO) 177 /CMM (150-450); RED BLOOD CELL COUNT(AUTO) 4.93 MIL/uL (4.5-6.0); WHITE BLOOD COUNT (AUTO) 7.2 K/uL (4.3-11.0)
[2020-02-07 01:36] LABS: CALCIUM, SERUM 8.6 mg/dL (8.5-10.1); CREATININE 1.4 mg/dL (0.6-1.3); POTASSIUM 3.7 mmol/L (3.5-5.1)
[2020-02-07] MEDS ORDERED: IOHEXOL-300 100 ML VIAL IV ONE (01:43)
--- NOTE | 2020-02-07 01:49 | NUR ---
PATIENT TAKEN TO CT.
--- NOTE | 2020-02-07 01:54 | NUR ---
RETURN FROM CT.
--- NOTE | 2020-02-07 03:17 | NUR ---
Patient discharged to home in stable condition. Written and verbal after care instructions given. Patient verbalizes understanding of instruction.
--- NOTE | 2020-02-07 03:17 | NUR ---
IV removed. Catheter intact and site benign. Pressure and 4x4 applied to site. No bleeding noted.
[2020-02-07 04:21] VITALS: BP 122/71
== END 2020-02-07 03:17 | disposition home or self-care (01) ==
LOC: ER 00:33
DX: R10.31 Right lower quadrant pain (principal); R10.32 Left lower quadrant pain; J45.909 Unspecified asthma, uncomplicated; K21.9 Gastro-esophageal reflux disease without esophagitis; Z98.890 Other specified postprocedural states; Z60.2 Problems related to living alone; Z79.899 Other long term (current) drug therapy
CPT/HCPCS: 36415; 74177; 80048; 81001; 85025; 99285; Q9967; 81000-TC

== ENCOUNTER 2020-02-22 16:06 | Emergency (ER) | payer OTHER ==
[~2020-02-22] VITALS: Ht 188 cm; Wt 130.2 kg
[2020-02-22 16:27] VITALS: BP 130/83
== END 2020-02-22 17:31 | disposition home or self-care (01) ==
LOC: ER 16:10
DX: J45.909 Unspecified asthma, uncomplicated (principal); G89.29 Other chronic pain; M54.5 Low back pain; K21.9 Gastro-esophageal reflux disease without esophagitis; I34.1 Nonrheumatic mitral (valve) prolapse; Z96.641 Presence of right artificial hip joint; Z98.890 Other specified postprocedural states; Z60.2 Problems related to living alone; Z79.899 Other long term (current) drug therapy

== ENCOUNTER 2020-05-08 05:06 | Emergency (ER) | payer OTHER ==
[~2020-05-08] VITALS: Ht 180.3 cm; Wt 115.7 kg
[2020-05-08 05:49] VITALS: BP 99/52
--- NOTE | 2020-05-08 05:53 | NUR ---
radiology at bedside.
--- NOTE | 2020-05-08 06:43 | NUR ---
Patient discharged to home in stable condition. Written and verbal after care instructions given. Patient verbalizes understanding of instruction.
== END 2020-05-08 06:44 | disposition home or self-care (01) ==
LOC: ER 05:06
DX: S49.82XA Other specified injuries of left shoulder and upper arm, initial encounter (principal); J45.909 Unspecified asthma, uncomplicated; K21.9 Gastro-esophageal reflux disease without esophagitis; Z96.641 Presence of right artificial hip joint; Z60.2 Problems related to living alone; Z79.899 Other long term (current) drug therapy; V49.69XA Unspecified car occupant injured in collision with other motor vehicles in traffic accident, initial encounter; Y93.89 Activity, other specified; Y92.89 Other specified places as the place of occurrence of the external cause; Y99.8 Other external cause status
CPT/HCPCS: 73030-TC

== ENCOUNTER 2020-06-10 11:10 | Emergency (ER) | payer OTHER ==
[~2020-06-10] VITALS: Ht 180.3 cm; Wt 115.7 kg
--- NOTE | 2020-06-10 11:24 | NUR ---
CAME IN FOR GENERALIZED WEAKNESS, NAUSEA W/ EPISODES OF VOMITING SINCE THIS AM, TO ER BED 11, HOOKED TO BP CUFF AND POX, CHANGED TO HOSP GOWN, WARM BLANKET PROVIDED, PATIENT AAO x 4, BREATHING EVEN AND UNLABORED, NOT IN RESPIRATORY DISTRESS. AWAITING MD XAVIER.
--- NOTE | 2020-06-10 11:32 | NUR ---
DR CASTELLANOS AT BEDSIDE
[2020-06-10] MEDS ORDERED: ONDANSETRON HCL/PF 4 MG/2 ML VIAL ONE (11:47)
[2020-06-10 11:48] LABS: BASOPHILS # (AUTO) 0.1 /CMM (0.0-0.2); BASOPHILS % (AUTO) 0.8 % (0.0-2.0); HEMATOCRIT 46 % (39-51); HEMOGLOBIN 14.9 g/dL (13.5-17.5); LYMPHOCYTES # (AUTO) 1.4 /CMM (0.8-4.8); LYMPHOCYTES % (AUTO) 12.6 % (20.0-44.0); MEAN CORPUSCULAR HGB CONC 33 g/dl (31.0-36.0); MEAN CORPUSCULAR VOLUME 85 fL (80-96); MONOCYTES # (AUTO) 0.6 /CMM (0.1-1.30); MONOCYTES % (AUTO) 5.5 % (2.0-12.0); NEUTROPHILS # (AUTO) 8.6 /CMM (1.8-8.9); NEUTROPHILS % (AUTO) 80.1 % (43.0-81.0); PLATELET COUNT (AUTO) 198 /CMM (150-450); WHITE BLOOD COUNT (AUTO) 10.7 K/uL (4.3-11.0)
[2020-06-10] MEDS ORDERED: ONDANSETRON HCL/PF 4 MG/2 ML VIAL IVP ONE (12:00)
[2020-06-10] MEDS ORDERED: IV NS 0.9% 1,000 ML BAG IV ONE (12:00)
[2020-06-10 12:04] LABS: ALANINE AMINOTRANSFERASE 31 U/L (12-78); ALKALINE PHOSPHATASE 79 U/L (46-116); ASPARTATE AMINOTRANSFERASE 52 U/L (15-37); BILIRUBIN,TOTAL 0.7 mg/dL (0.2-1.0); CALCIUM, SERUM 9.8 mg/dL (8.5-10.1); CARBON DIOXIDE 27 mmol/L (21-32); CHLORIDE 103 mmol/L (98-107); CREATININE 1.2 mg/dL (0.6-1.3); GLUCOSE 105 mg/dL (74-106); LIPASE 105 U/L (73-393); POTASSIUM 5.5 mmol/L (3.5-5.1); SODIUM SERUM 137 mmol/L (136-145); TOTAL PROTEIN, SERUM 8.2 g/dL (6.4-8.2); UREA NITROGEN, BLOOD 19 mg/dL (7-18)
[2020-06-10 13:07] VITALS: BP 112/68
--- NOTE | 2020-06-10 13:07 | NUR ---
Patient discharged to home in stable condition. Written and verbal after care instructions given. Patient verbalizes understanding of instruction.IV removed. Catheter intact and site benign. Pressure and 4x4 applied to site. No bleeding noted.
== END 2020-06-10 13:08 | disposition home or self-care (01) ==
LOC: ER 11:14
DX: R11.2 Nausea with vomiting, unspecified (principal); R53.1 Weakness; E87.5 Hyperkalemia; J45.909 Unspecified asthma, uncomplicated; K21.9 Gastro-esophageal reflux disease without esophagitis; Z96.641 Presence of right artificial hip joint; Z60.2 Problems related to living alone; Z79.899 Other long term (current) drug therapy
CPT/HCPCS: 36415; 71045; 80048; 80076; 83690; 84484; 85025; 93005; 96361; 96374; 99285; J2405; J7030

== ENCOUNTER 2020-06-19 22:09 | Emergency (ER) | payer OTHER ==
[~2020-06-19] VITALS: Ht 180.3 cm; Wt 117.9 kg
--- NOTE | 2020-06-19 22:26 | NUR ---
BIBS FROM HOME TO ER BED 7. AAOX4. NOT IN RESP DISTRESS, BREATHING EVEN AND UNLABORED. CAME IN FOR MID LEFT STERNAL CP X 1 HR WORM GROWER. UPON TIME OF ASSESSMENT, PT DOES NOT HAVE ANY PAIN. PT REPORTS THAT PAIN HE HAD 8/10 [place]. MD WAS AT THE BEDSIDE FOR EVAL. ORDERS RECEIBED NOTED AND CARRIED OUT. IV LINE ESTABLISHED ON LAC 20G. BLOOD DRAWN AND GIVEN TO CORN PRESS OPERATOR AT BEDSIDE. PT IS ON MONITPR
[2020-06-19 22:46] LABS: BASOPHILS % (AUTO) 0.6 % (0.0-2.0); EOSINOPHILS % (AUTO) 2.3 % (0.0-6.0); HEMATOCRIT 42 % (39-51); HEMOGLOBIN 13.8 g/dL (13.5-17.5); LYMPHOCYTES # (AUTO) 1.4 /CMM (0.8-4.8); LYMPHOCYTES % (AUTO) 17.9 % (20.0-44.0); MEAN CORPUSCULAR HGB CONC 33 g/dl (31.0-36.0); MEAN CORPUSCULAR VOLUME 84 fL (80-96); MONOCYTES # (AUTO) 0.4 /CMM (0.1-1.30); MONOCYTES % (AUTO) 4.6 % (2.0-12.0); NEUTROPHILS % (AUTO) 74.6 % (43.0-81.0); PLATELET COUNT (AUTO) 180 /CMM (150-450); RED BLOOD CELL COUNT(AUTO) 5.02 MIL/uL (4.5-6.0)
[2020-06-19 22:59] LABS: CALCIUM, SERUM 8.9 mg/dL (8.5-10.1); CARBON DIOXIDE 29 mmol/L (21-32); CHLORIDE 103 mmol/L (98-107); CREATININE 1.5 mg/dL (0.6-1.3); GLUCOSE 152 mg/dL (74-106); SODIUM SERUM 141 mmol/L (136-145); UREA NITROGEN, BLOOD 18 mg/dL (7-18)
[2020-06-19] MEDS: NITROGLYCERIN 0.4 MG/TAB BOTTLE SL ONE (23:00)
[2020-06-19] MEDS ORDERED: NITROGLYCERIN 0.4 MG/TAB BOTTLE ONE (23:04)
[2020-06-19] MEDS ORDERED: ASPIRIN 325 MG TABLET ONE (23:04)
[2020-06-19] MEDS: ASPIRIN 325 MG TABLET PO ONE (23:11)
--- NOTE | 2020-06-20 01:01 | NUR ---
EMT AT BEDSIDE FOR EKG
--- NOTE | 2020-06-20 01:01 | NUR ---
SPEECH LANGUAGE THERAPIST AT BEDSIDE FOR SECOND TROP.
--- NOTE | 2020-06-20 02:10 | NUR ---
IV removed. Catheter intact and site benign. Pressure and 4x4 applied to site. No bleeding noted.
--- NOTE | 2020-06-20 02:10 | NUR ---
Patient discharged to home in stable condition. Written and verbal after care instructions given. Patient verbalizes understanding of instruction. Pt ambulated with steady gait.vss.
[2020-06-20 02:11] VITALS: BP 118/73
== END 2020-06-20 02:11 | disposition home or self-care (01) ==
LOC: ER 22:12
DX: R07.89 Other chest pain (principal); J45.909 Unspecified asthma, uncomplicated; K21.9 Gastro-esophageal reflux disease without esophagitis; Z96.641 Presence of right artificial hip joint; Z98.890 Other specified postprocedural states; Z60.2 Problems related to living alone; Z79.899 Other long term (current) drug therapy
CPT/HCPCS: 36415; 71045-TC; 80048-TC; 84484-TC; 85025-TC

== ENCOUNTER 2021-01-22 00:49 | Emergency (ER) | payer OTHER ==
[~2021-01-22] VITALS: Ht 182.9 cm; Wt 127.0 kg
--- NOTE | 2021-01-22 00:58 | NUR ---
PT AAOX4. AMBULATORY WITH STEADY GAIT,. BIBSELF C/O MID LOWER LEFT SIDED ABD PAIN STARTED 2 DAYS AGO. PT PLACED IN BED 4 ON MONITOR AND PULSE OX. URINE COLLECTED, SENT TO LAB. AWAITING ER MD FOR EVAL.
[2021-01-22] MEDS ORDERED: IOHEXOL-300 100 ML VIAL IV ONE (01:30)
[2021-01-22] MEDS ORDERED: IV NS 0.9% 250 ML IV ONE (01:31)
[2021-01-22 01:37] LABS: BASOPHILS # (AUTO) 0.1 /CMM (0.0-0.2); BASOPHILS % (AUTO) 1.1 % (0.0-2.0); EOSINOPHILS % (AUTO) 5.6 % (0.0-6.0); HEMATOCRIT 42 % (39-51); LYMPHOCYTES % (AUTO) 28.4 % (20.0-44.0); MEAN CORPUSCULAR HGB CONC 34 g/dl (31.0-36.0); MEAN CORPUSCULAR VOLUME 86 fL (80-96); MONOCYTES # (AUTO) 0.5 /CMM (0.1-1.30); MONOCYTES % (AUTO) 6.5 % (2.0-12.0); NEUTROPHILS # (AUTO) 4.1 /CMM (1.8-8.9); NEUTROPHILS % (AUTO) 58.4 % (43.0-81.0); PLATELET COUNT (AUTO) 187 /CMM (150-450)
[2021-01-22 01:57] LABS: ALBUMIN 3.7 g/dL (3.4-5.0); BILIRUBIN,DIRECT 0.1 mg/dL (0.0-0.2); BILIRUBIN,TOTAL 0.3 mg/dL (0.2-1.0); CREATININE 1.4 mg/dL (0.6-1.3); POTASSIUM 3.9 mmol/L (3.5-5.1); TOTAL PROTEIN, SERUM 6.8 g/dL (6.4-8.2)
[2021-01-22] MEDS ORDERED: HYDR-4209 PO (03:13)
[2021-01-22] MEDS ORDERED: ONDA4TAB5 PO (03:13)
[2021-01-22] MEDS ORDERED: HYDROMORPHONE 1 MG/1 ML DISP.SYRIN ONE (03:30)
[2021-01-22] MEDS ORDERED: ONDANSETRON HCL/PF 4 MG/2 ML VIAL ONE (03:30)
[2021-01-22] MEDS ORDERED: ONDANSETRON HCL/PF - ER 4 MG/2 ML VIAL IV ONE (03:30)
[2021-01-22] MEDS ORDERED: HYDROMORPHONE 1 MG/1 ML DISP.SYRIN IV ONE (03:30)
--- NOTE | 2021-01-22 04:39 | NUR ---
IV removed. Catheter intact and site benign. Pressure and 4x4 applied to site. No bleeding noted.
--- NOTE | 2021-01-22 04:40 | NUR ---
Patient discharged to home in stable condition. Written and verbal after care instructions given. Patient verbalizes understanding of instruction and RX. Pt ambulated out of ED. VSS.
[2021-01-22 04:46] VITALS: BP 109/67
== END 2021-01-22 04:56 | disposition home or self-care (01) ==
LOC: ER 00:54
DX: K57.30 Diverticulosis of large intestine without perforation or abscess without bleeding (principal); K40.90 Unilateral inguinal hernia, without obstruction or gangrene, not specified as recurrent; J45.909 Unspecified asthma, uncomplicated; Z98.890 Other specified postprocedural states; Z60.2 Problems related to living alone; Z79.899 Other long term (current) drug therapy
CPT/HCPCS: 36415; 74177; 76870; 80048; 80076; 83690; 85025; 85730; 96374; 96375; 99285; J1170; J2405 ×2; J7050; Q9967

== ENCOUNTER 2021-10-14 10:13 | Emergency (ER) | payer OTHER ==
[~2021-10-14] VITALS: Ht 182.9 cm; Wt 113.4 kg
[~2021-10-14 10:13] MED LIST changes: +HYDR-4209 PO; +ONDA4TAB5 PO
[2021-10-14 10:23] VITALS: BP 119/66
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
[2021-10-14] MEDS ORDERED: PRED20TA PO (11:17)
[2021-10-14] MEDS ORDERED: HYDR-4209 PO (11:17)
--- NOTE | 2021-10-14 11:27 | NUR ---
Patient discharged to home in stable condition. Written and verbal after care instructions given. Patient verbalizes understanding of instruction.
== END 2021-10-14 11:28 | disposition home or self-care (01) ==
LOC: ER 10:15
DX: M54.41 Lumbago with sciatica, right side (principal); J45.909 Unspecified asthma, uncomplicated; Z96.641 Presence of right artificial hip joint; Z98.890 Other specified postprocedural states; Z60.2 Problems related to living alone; Z79.899 Other long term (current) drug therapy

== ENCOUNTER 2021-11-29 11:46 | Emergency (ER) | payer OTHER ==
[~2021-11-29] VITALS: Ht 182.9 cm; Wt 106.1 kg
[~2021-11-29 11:46] MED LIST changes: +PRED20TA PO
[2021-11-29 12:21] LABS: BASOPHILS # (AUTO) 0.1 K/uL (0.0-0.2); BASOPHILS % (AUTO) 0.9 % (0.0-2.0); HEMATOCRIT 41 % (39-51); LYMPHOCYTES # (AUTO) 1.3 K/uL (0.8-4.8); LYMPHOCYTES % (AUTO) 17.2 % (20.0-44.0); MEAN CORPUSCULAR HGB CONC 34 g/dl (31.0-36.0); MEAN CORPUSCULAR VOLUME 87 fL (80-96); MONOCYTES # (AUTO) 0.4 K/uL (0.1-1.30); MONOCYTES % (AUTO) 6.1 % (2.0-12.0); NEUTROPHILS # (AUTO) 5.3 K/uL (1.8-8.9); NEUTROPHILS % (AUTO) 72.8 % (43.0-81.0); PLATELET COUNT (AUTO) 171 K/uL (150-450); RED BLOOD CELL COUNT(AUTO) 4.77 MIL/uL (4.5-6.0); WHITE BLOOD COUNT (AUTO) 7.3 K/uL (4.3-11.0)
[2021-11-29 12:37] LABS: CALCIUM, SERUM 8.9 mg/dL (8.5-10.1); CARBON DIOXIDE 24 mmol/L (21-32); CHLORIDE 106 mmol/L (98-107); CREATININE 1.2 mg/dL (0.6-1.3); GLUCOSE 117 mg/dL (74-106); POTASSIUM 3.5 mmol/L (3.5-5.1); SODIUM SERUM 137 mmol/L (136-145); UREA NITROGEN, BLOOD 11 mg/dL (7-18)
[2021-11-29 15:41] VITALS: BP 116/65
== END 2021-11-29 15:41 | disposition home or self-care (01) ==
LOC: ER 11:49
DX: R07.89 Other chest pain (principal); J45.909 Unspecified asthma, uncomplicated; K21.9 Gastro-esophageal reflux disease without esophagitis; Z98.890 Other specified postprocedural states; Z60.2 Problems related to living alone; Z79.899 Other long term (current) drug therapy
CPT/HCPCS: 36415; 71045-TC; 80048-TC; 84484-TC; 85025-TC

== ENCOUNTER 2022-08-19 10:27 | Emergency (ER) | payer OTHER ==
[~2022-08-19] VITALS: Ht 182.9 cm; Wt 86.2 kg
[2022-08-19 10:38] VITALS: BP 125/76
[2022-08-19] MEDS ORDERED: CYCLOBENZAPRINE 10 MG TABLET PO ONE (11:00)
[2022-08-19] MEDS ORDERED: HYDROCODONE/APAP 10/325MG TABLET PO ONE (11:00)
[2022-08-19] MEDS ORDERED: HYDROCODONE/APAP 10/325MG TABLET ONE (11:10)
[2022-08-19] MEDS ORDERED: CYCLOBENZAPRINE 10 MG TABLET ONE (11:10)
[2022-08-19] MEDS ORDERED: CYCL5TAB PO (11:33)
--- NOTE | 2022-08-19 11:41 | NUR ---
Patient discharged to home in stable condition. Written and verbal after care instructions given. Patient verbalizes understanding of instruction.
== END 2022-08-19 11:41 | disposition home or self-care (01) ==
LOC: ER 10:29
DX: S33.5XXA Sprain of ligaments of lumbar spine, initial encounter (principal); N18.30 Chronic kidney disease, stage 3 unspecified; G89.29 Other chronic pain; J45.909 Unspecified asthma, uncomplicated; Z96.641 Presence of right artificial hip joint; Z60.2 Problems related to living alone; Z79.899 Other long term (current) drug therapy; V89.2XXA Person injured in unspecified motor-vehicle accident, traffic, initial encounter; Y93.89 Activity, other specified; Y92.89 Other specified places as the place of occurrence of the external cause; Y99.8 Other external cause status

== ENCOUNTER 2022-11-13 08:58 | Emergency (ER) | payer OTHER ==
[~2022-11-13] VITALS: Ht 182.9 cm; Wt 99.8 kg
[~2022-11-13 08:58] MED LIST changes: +CYCL5TAB PO
--- NOTE | 2022-11-13 09:11 | NUR ---
C/O BILATERAL LOWER BACK PAIN X 1 WEEK. S/P "LIFTING WHEELCHAIR TO CAR" 10/10 PAIN SCALE. DENIES AND TRAUMA. PT ASSISTED TO BED AND CONNECTED TO MONITOR. VSS. AAOX4. AWAITING MD ORDERS.
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
[2022-11-13] MEDS ORDERED: METH4TAB17 PO (12:33)
--- NOTE | 2022-11-13 12:41 | NUR ---
Patient discharged to home in stable condition. Written and verbal after care instructions given. Patient verbalizes understanding of instruction.
[2022-11-13 12:42] VITALS: BP 136/81
== END 2022-11-13 12:42 | disposition home or self-care (01) ==
LOC: ER 08:59
DX: M54.42 Lumbago with sciatica, left side (principal); M54.41 Lumbago with sciatica, right side; N18.30 Chronic kidney disease, stage 3 unspecified; K21.9 Gastro-esophageal reflux disease without esophagitis; G89.29 Other chronic pain; J45.909 Unspecified asthma, uncomplicated; Z96.641 Presence of right artificial hip joint; Z60.2 Problems related to living alone; Z79.899 Other long term (current) drug therapy
CPT/HCPCS: 72131-TC

== ENCOUNTER 2023-11-30 16:19 | Emergency (ER) | payer OTHER ==
[~2023-11-30] VITALS: Ht 157.5 cm; Wt 59.9 kg
[~2023-11-30 16:19] MED LIST changes: +METH4TAB17 PO
[2023-11-30] MEDS ORDERED: NITROGLYCERIN 0.4 MG/TAB BOTTLE ONE (16:34)
[2023-11-30] MEDS ORDERED: ASPIRIN 325 MG TABLET ONE (16:34)
[2023-11-30] MEDS: ASPIRIN 325 MG TABLET PO ONE (16:39)
[2023-11-30] MEDS: NITROGLYCERIN 0.4 MG/TAB BOTTLE SL ONE (16:39)
[2023-11-30 16:50] LABS: BASOPHILS # (AUTO) 0.1 K/uL (0.0-0.2); BASOPHILS % (AUTO) 1.1 % (0.0-2.0); EOSINOPHILS # (AUTO) 0.3 K/uL (0.0-0.7); EOSINOPHILS % (AUTO) 3.6 % (0.0-6.0); HEMATOCRIT 42 % (39-51); HEMOGLOBIN 14.3 g/dL (13.5-17.5); LYMPHOCYTES # (AUTO) 1.2 K/uL (0.8-4.8); LYMPHOCYTES % (AUTO) 15.1 % (20.0-44.0); MEAN CORPUSCULAR HEMOGLOBIN 29 PG (26.0-33.0); MEAN CORPUSCULAR HGB CONC 34 g/dl (31.0-36.0); MEAN CORPUSCULAR VOLUME 85 fL (80-96); MONOCYTES # (AUTO) 0.5 K/uL (0.1-1.30); MONOCYTES % (AUTO) 5.9 % (2.0-12.0); NEUTROPHILS # (AUTO) 6.1 K/uL (1.8-8.9); NEUTROPHILS % (AUTO) 74.3 % (43.0-81.0); PLATELET COUNT (AUTO) 197 K/uL (150-450); RED BLOOD CELL COUNT(AUTO) 4.94 MIL/uL (4.5-6.0); RED CELL DISTRIBUTION WIDTH 13.4 % (11.5-15.0); WHITE BLOOD COUNT (AUTO) 8.2 K/uL (4.3-11.0)
[2023-11-30 17:16] LABS: CALCIUM, SERUM 9.3 mg/dL (8.5-10.1); CARBON DIOXIDE 25 mmol/L (21-32); CHLORIDE 105 mmol/L (98-107); CREATININE 1.3 mg/dL (0.6-1.3); GLUCOSE 114 mg/dL (74-106); SODIUM SERUM 139 mmol/L (136-145); UREA NITROGEN, BLOOD 12 mg/dL (7-18)
[2023-11-30 18:12] LABS: NT-PRO BNP 67 pg/mL (0-125)
[2023-11-30 18:40] VITALS: TEMP 98.4
[2023-11-30] MEDS ORDERED: DIAZEPAM 5 MG TABLET ONE (23:32)
[2023-11-30] MEDS: DIAZEPAM 5 MG TABLET PO ONE (23:33)
[2023-12-01 03:49] VITALS: BP 132/69; O2SAT 99
== END 2023-12-01 03:56 | disposition short-term general hospital (02) ==
LOC: ER 16:19
DX: R07.9 Chest pain, unspecified (principal); I12.9 Hypertensive chronic kidney disease with stage 1 through stage 4 chronic kidney disease, or unspecified chronic kidney disease; N18.30 Chronic kidney disease, stage 3 unspecified; G89.29 Other chronic pain; K21.9 Gastro-esophageal reflux disease without esophagitis; Z96.641 Presence of right artificial hip joint; Z60.2 Problems related to living alone; Z79.899 Other long term (current) drug therapy
CPT/HCPCS: 36415; 71045-TC; 80048-TC; 83880; 84484-TC; 85025-TC

== ENCOUNTER 2025-08-02 15:03 | Emergency (ER) | payer OTHER ==
[~2025-08-02] VITALS: Ht 182.9 cm; Wt 143.8 kg
[2025-08-02] MEDS: TRIAMCINOLONE ACETONIDE SUSP 40 MG/ML 1 ML IJ ONE (16:43)
[2025-08-02] MEDS: LIDOCAINE 1% INJ 50 ML MDV IJ ONE (16:43)
[2025-08-02 17:22] VITALS: BP 129/78; TEMP 98.3; O2SAT 100
[2025-08-02] MEDS: KETOROLAC TROMETHAMINE 15 MG/ML VIAL IM ONE (17:22)
== END 2025-08-02 17:42 | disposition home or self-care (01) ==
LOC: ER 15:15
DX: S89.92XA Unspecified injury of left lower leg, initial encounter (principal); M13.862 Other specified arthritis, left knee; J45.909 Unspecified asthma, uncomplicated; Z79.52 Long term (current) use of systemic steroids; Z87.19 Personal history of other diseases of the digestive system; Z79.899 Other long term (current) drug therapy; X58.XXXA Exposure to other specified factors, initial encounter; Y93.89 Activity, other specified; Y92.89 Other specified places as the place of occurrence of the external cause; Y99.8 Other external cause status
CPT/HCPCS: 99284; 20610; 96372; 73564; J1885; A6403

== ENCOUNTER 2025-09-12 12:41 | Emergency (ER) | payer OTHER ==
[~2025-09-12] VITALS: Ht 182.9 cm; Wt 136.1 kg
[2025-09-12 13:01] VITALS: TEMP 98.3
[2025-09-12] MEDS ORDERED: ONDANSETRON HCL/PF 4 MG/2 ML VIAL ONE (13:30)
[2025-09-12 13:35] LABS: APPEARANCE,URINE CLEAR (CLEAR); BLOOD, URINE NEGATIVE Ery/uL (NEGATIVE); LEUKOCYTE ESTERASE ,URINE NEGATIVE (NEGATIVE); NITRITE, URINE NEGATIVE (NEGATIVE); UGLUCOSE NEGATIVE (NEGATIVE)
[2025-09-12] MEDS: ONDANSETRON HCL/PF 4 MG/2 ML VIAL IVP ONE (13:40)
[2025-09-12] MEDS: IV NS 0.9% 1,000 ML BAG IV ONE (13:40)
[2025-09-12 14:04] LABS: PLATELET COUNT (AUTO) 194 K/uL (150-450); RED BLOOD CELL COUNT(AUTO) 4.88 MIL/uL (4.5-6.0); RED CELL DISTRIBUTION WIDTH 14.4 % (11.5-15.0); WHITE BLOOD COUNT (AUTO) 6.9 K/uL (4.3-11.0)
[2025-09-12] MEDS ORDERED: IOHEXOL-350 100 ML VIAL IV ONE (14:10)
[2025-09-12 14:27] LABS: CALCIUM, SERUM 9.3 mg/dL (8.5-10.1); CREATININE 1.3 mg/dL (0.6-1.3); SODIUM SERUM 141.0 mmol/L (136-145); UREA NITROGEN, BLOOD 13.0 mg/dL (7-18)
[2025-09-12 14:30] LABS: ASPARTATE AMINOTRANSFERASE 30.0 U/L (15-37); TOTAL PROTEIN, SERUM 7.5 g/dL (6.4-8.2)
[2025-09-12 16:59] VITALS: BP 112/70; O2SAT 98
== END 2025-09-12 16:57 | disposition home or self-care (01) ==
LOC: ER 12:45
DX: R10.32 Left lower quadrant pain (principal); J45.909 Unspecified asthma, uncomplicated; G89.29 Other chronic pain; N18.30 Chronic kidney disease, stage 3 unspecified; Z79.52 Long term (current) use of systemic steroids; Z79.899 Other long term (current) drug therapy; Z87.19 Personal history of other diseases of the digestive system; Z96.641 Presence of right artificial hip joint; Z98.1 Arthrodesis status; Z60.2 Problems related to living alone
CPT/HCPCS: 99285; 74177; 96374; 96361; 85025; 80048; 80076; 81003; 36415; J2405; J7030; Q9967